=== PATIENT | female | born 1940 | race Caucasian/White ===

== ENCOUNTER 2016-05-06 17:42 | Inpatient (IN) | payer OTHER ==
[2016-05-06] MEDS ORDERED: NITROGLYCERIN SL PRN (18:35)
[2016-05-06] MEDS ORDERED: ASPIRIN PO STA (18:35)
--- NOTE | 2016-05-06 18:44 | PROVIDER DOCUMENTATION ---
HPI-Chest Pain <MilaFay - Last Filed: 05/06/16 22:56> - General Source: patient - History of Present Illness-CP Location: reports: substernal Chest Pain Radiation: reports: shoulders, back Quality of Pain: reports: pressure Severity in ED: mild Onset/Duration: other (OFF AND ON FOR TWO WEEKS, LAST 5 TO 30 MIN. vERY MUCH RELATED TO EXERTION) Timing: still present Context/Activities at Onset: reports: light activity Modifying Factors: improves with: nothing, rest. worse with: antacids, breathing, coughing, lying down Associated Symptoms: reports: back pain, shortness of breath Nitro Today/Relief: no nitro taken today Aspirin Treatment Today: no aspirin today Prior Chest Pain/Cardiac Workup: reports: no prior cardiac workup Similar Symptoms Previously?: Yes Recently Seen Here or By Another Healthcare Provider: No <Yonis Burton - Last Filed: 05/11/16 18:28> - General Chief Complaint: Chest Pain Stated Complaint: CHEST PAIN,HARD TO BREATHE Time Seen by Provider: 05/06/16 18:15 Allergies/Adverse Reactions: Patient Allergies Allergy/AdvReac Type Severity Reaction Status Date / Time aspirin Allergy Intermediate heart Verified 05/06/16 18:47 palpitations metformin Allergy Intermediate DIARRHEA Verified 05/06/16 18:47 Penicillins Allergy Intermediate SWELLING Verified 05/06/16 18:47 Home Medications: Home Medication List Medication Instructions Recorded Confirmed Last Taken Type Furosemide 40 mg PO DAILY 06/05/12 05/06/16 05/06/16 History Glipizide 20 mg PO BID 06/05/12 05/06/16 05/06/16 History Sertraline HCl [Zoloft] 100 mg PO DAILY 06/05/12 05/06/16 05/06/16 History Pioglitazone HCl [Actos] 45 mg PO DAILY 12/01/13 05/06/16 05/06/16 History Potassium Chloride E.r. [Klor-Con] 10 meq PO DAILY #0 tablet 12/27/13 05/06/16 05/06/16 Rx ATORVAstatin [Lipitor] 40 mg PO QHS 04/25/15 05/06/16 05/06/16 History Brimonidine 0.2% Ophth Soln 5 ml .SEE ORDER BID 04/25/15 05/06/16 05/06/16 History [Alphagan 0.2% Ophth Soln] Timolol 0.5% Oph Solution 1 drop BOTH EYES BID 04/25/15 05/06/16 05/06/16 History [Timoptic 0.5% Oph Solution] Hydrocodone/APAP 7.5 mg/325 mg 1 each PO Q6H PRN PRN #10 tablet 04/23/1605/06/16 Rx [Alverda-7.5] Azithromycin [Zithromax] 250 mg PO DAILY #5 tablet 05/09/16 Unknown Rx Guaifenesin/Codeine [Robitussin-AC] 10 ml PO Q4-6H PRN PRN #1 udc 05/09/16 Unknown Rx Tramadol [Ultram] 50 mg PO Q6H PRN PRN #15 tablet 05/09/16 Unknown Rx - History of Present Illness-CP Nature of Presenting Problem: 75 yo WF with DM 2 c/o exertional dyspnea and midpeigastric CP always relieved by rest. No Tng, (Yonis Burton) Review of Systems - Adult - REVIEW OF SYSTEMS - ADULT Constitutional: reports: no symptoms reported Eyes: reports: decreased vision Ears, Nose, Mouth & Throat: reports: no symptoms reported Cardiovascular: reports: see HPI Respiratory: reports: see HPI, other (PT HAD PTE 10 OR MORE YEARS AGO) Gastrointestinal: reports: no symptoms reported Genitourinary: reports: no symptoms reported Musculoskeletal: reports: no symptoms reported Integumentary: reports: no symptoms reported Neurological: reports: no symptoms reported Psychiatric: reports: no symptoms reported Endocrine: reports: no symptoms reported Hematologic/Lymphatic: reports: easy bruising Allergic/Immunologic: reports: no symptoms reported <Yonis Burton - Last Filed: 05/11/16 18:28> Past History - Adult - PAST MEDICAL HISTORY-ADULT Review of Records: reports: Old Records Reviewed Major Childhood Illnesses: reports: denies history Cardiovascular: reports: A-Fib, hyperlipidemia Respiratory: reports: denies history Gastrointestinal: reports: GERD Obstetrical/Gynecological: reports: denies history Genitourinary: reports: kidney disease Musculoskeletal: reports: denies history Neurological: reports: denies history Psychiatric: reports: depression Endocrine/Immune: reports: Diabetes, thyroid disorder Other Conditions: reports: other (DVT right leg) - PRIOR SURGERIES/PROCEDURES Surgical/Procedure History: reports: hysterectomy, orthopedic (extremity) ( right arm shoulder, left shoulder, wrist.), other (D & C ) - IMMUNIZATION STATUS Childhood Immunizations: UTD Flu Vaccine: UTD <Yonis Burton - Last Filed: 05/11/16 18:28> Physical Exam-General - PHYSICAL EXAM-ADULT Initial Vital Signs Reviewed: Yes - CONSTITUTIONAL General Appearance: mild distress - EYES Eyes: PERRL/EOMI, pink conjunctivae - HEAD, EARS, NOSE, MOUTH & THROAT HENMT: normocephalic/atraumatic, moist mucous membranes, pharynx normal - NECK Neck: full range of motion. negative: carotid bruit, lymphadenopathy - RESPIRATORY Respiratory: chest non-tender, lungs clear - CARDIOVASCULAR Cardiovascular: normal peripheral pulses - CHEST (BREASTS) Chest/Breast: deferred - GASTROINTESTINAL (ABDOMEN) Abdominal Exam: normal bowel sounds, non tender - GENITOURINARY Female Genitalia/Pelvic Exam: deferred - MUSCULOSKELETAL Back Exam: normal inspection Peripheral Pulses: radial (R): 2+, radial (L): 2+ <Yonis Burton - Last Filed: 05/11/16 18:28> Progress - EKG 1 Time of EKG reading by physician:: 17:49 EKG Read and Signed by:: Yonis Burton EKG Interpretation (*Must complete 3 of following elements*): Normal Rate: 75 Rhythm: NSR Comments: Normal ECG 2 Time of EKG reading by physician:: 21:15 EKG Read and Signed by:: Yonis Burton EKG Interpretation (*Must complete 3 of following elements*): Normal Rate: 64 Rhythm: NSR Comments: Normal ECG - CONSULTS/PCP/HOSPITALIST Notification #1 *Consult/PCP/Hospitalist*: Time Discussed: 22:57 Reason/Comments: Admittance Consult Disposition: Admit (Admit Transferred) <Fay Zaragoza - Last Filed: 05/06/16 22:56> <Yonis Burton - Last Filed: 05/11/16 18:28> - PLAN OF CARE/RESULTS Progress/Plan/Lab Results: Laboratory Tests 05/06/16 05/06/16 05/06/16 18:05 18:30 18:30 WBC 8.62 RBC 4.52 Hgb 14.0 Hct 43.1 MCV 95.4 MCH 31.0 MCHC 32.5 L RDW Std Deviation 13.7 Plt Count 176 MPV 11.3 H Immature Gran % (Auto) 0.2 Neut % (Auto) 60.8 Lymph % (Auto) 26.1 [place] % (Auto) 11.0 H Eos % (Auto) 1.7 Baso % (Auto) 0.2 Immature Gran # (Auto) 0.02 Neut # (Auto) 5.23 Lymph # (Auto) 2.25 [place] # (Auto) 0.95 H Eos # (Auto) 0.15 Baso # (Auto) 0.02 PT INR PTT (Actin FS) D-Dimer Sodium 142 Potassium 4.0 Chloride 101 Carbon Dioxide 28 Anion Gap 13 BUN 18 Creatinine 1.1 H Estimated GFR/1.73 m2 49 BUN/Creatinine Ratio 16 Glucose 122 H POC Glucose 154 H Calculated Osmolality 286 Calcium 9.2 Magnesium 1.8 Total Bilirubin 0.40 AST 23 ALT 14 Alkaline Phosphatase 138 H Creatine Kinase 86 Troponin T Bjp-R-Sojhnghxpak Pept Total Protein 6.9 Albumin 3.9 Globulin 3.0 Albumin/Globulin Ratio 1.3 05/06/16 05/06/16 05/06/16 18:30 18:30 18:30 WBC RBC Hgb Hct MCV MCH MCHC RDW Std Deviation Plt Count MPV Immature Gran % (Auto) Neut % (Auto) Lymph % (Auto) [place] % (Auto) Eos % (Auto) Baso % (Auto) Immature Gran # (Auto) Neut # (Auto) Lymph # (Auto) [place] # (Auto) Eos # (Auto) Baso # (Auto) PT 11.0 INR 1.04 PTT (Actin FS) 26.5 D-Dimer 1.00 H Sodium Potassium Chloride Carbon Dioxide Anion Gap BUN Creatinine Estimated GFR/1.73 m2 BUN/Creatinine Ratio Glucose POC Glucose Calculated Osmolality Calcium Magnesium Total Bilirubin AST ALT Alkaline Phosphatase Creatine Kinase Troponin T Oin-L-Zmrraftltod Pept 153 Total Protein Albumin Globulin Albumin/Globulin Ratio 05/06/16 05/06/16 05/06/16 18:30 20:58 20:58 WBC RBC Hgb Hct MCV MCH MCHC RDW Std Deviation Plt Count MPV Immature Gran % (Auto) Neut % (Auto) Lymph % (Auto) [place] % (Auto) Eos % (Auto) Baso % (Auto) Immature Gran # (Auto) Neut # (Auto) Lymph # (Auto) [place] # (Auto) Eos # (Auto) Baso # (Auto) PT INR PTT (Actin FS) D-Dimer Sodium Potassium Chloride Carbon Dioxide Anion Gap BUN Creatinine Estimated GFR/1.73 m2 BUN/Creatinine Ratio Glucose POC Glucose Calculated Osmolality Calcium Magnesium Total Bilirubin AST ALT Alkaline Phosphatase Creatine Kinase 82 Troponin T < 0.010 < 0.010 Qry-S-Sqppxngvpzb Pept Total Protein Albumin Globulin Albumin/Globulin Ratio Orders Category Date Time Status Cardiac Monitoring DIRECTED Care 05/06/16 18:35 Active Saline Loc NOW Care 05/06/16 18:35 Active CHEST-PORTABLE [RAD] Stat Exams 05/06/16 18:38 Taken CBC WITH ELECTRONIC DIFF [HEME] Stat Lab 05/06/16 18:30 Completed CK PROFILE [SP CHEM] Stat Lab 05/06/16 18:30 Completed CK PROFILE [SP CHEM] Stat Lab 05/06/16 20:58 Completed COMPREHENSIVE METABOLIC PANEL [CHEM] Stat Lab 05/06/16 18:30 Completed D-DIMER [CHEM] Stat Lab 05/06/16 18:30 Completed MAGNESIUM [CHEM] Stat Lab 05/06/16 18:30 Completed PRO B-NATRIURETIC PEPTIDE Stat Lab 05/06/16 18:30 Completed PROTIME WITH INR [COAG] Stat Lab 05/06/16 18:30 Completed PTT [COAG] Stat Lab 05/06/16 18:30 Completed TROPONIN T Stat Lab 05/06/16 18:30 Completed TROPONIN T Stat Lab 05/06/16 20:58 Completed Aspirin Med 05/06/16 18:35 Discontinued 325 mg PO STAT STA Nitroglycerin Sl [Nitroglycerin] Med 05/06/16 18:35 Active 0.4 mg SL Q5M PRN PRN EKG [EKG] Stat Ther 05/06/16 18:35 Ordered EKG [EKG] Stat Ther 05/06/16 19:59 Ordered Vital Signs - 24 hr 05/06/16 05/06/16 05/06/16 17:51 19:01 21:54 Temperature 97.8 F 98.0 F Pulse Rate 74 64 64 Respiratory 20 21 18 Rate Blood Pressure 134/53 144/60 119/53 O2 Sat by Pulse 99 96 94 L Oximetry 05/06/16 22:02 Temperature Pulse Rate Respiratory Rate Blood Pressure O2 Sat by Pulse 96 Oximetry (Fay Zaragoza) Laboratory Tests 05/06/16 05/06/16 05/06/16 18:05 18:30 18:30 WBC 8.62 RBC 4.52 Hgb 14.0 Hct 43.1 MCV 95.4 MCH 31.0 MCHC 32.5 L RDW Std Deviation 13.7 Plt Count 176 MPV 11.3 H Immature Gran % (Auto) 0.2 Neut % (Auto) 60.8 Lymph % (Auto) 26.1 [place] % (Auto) 11.0 H Eos % (Auto) 1.7 Baso % (Auto) 0.2 Immature Gran # (Auto) 0.02 Neut # (Auto) 5.23 Lymph # (Auto) 2.25 [place] # (Auto) 0.95 H Eos # (Auto) 0.15 Baso # (Auto) 0.02 ESR PT INR PTT (Actin FS) D-Dimer Sodium 142 Potassium 4.0 Chloride 101 Carbon Dioxide 28 Anion Gap 13 BUN 18 Creatinine 1.1 H Estimated GFR/1.73 m2 49 BUN/Creatinine Ratio 16 Glucose 122 H POC Glucose 154 H Estimat Average Glucose Hemoglobin A1c Calculated Osmolality 286 Calcium 9.2 Magnesium 1.8 Total Bilirubin 0.40 AST 23 ALT 14 Alkaline Phosphatase 138 H Creatine Kinase 86 Troponin T Kvd-R-Ghhuhwmusjs Pept Total Protein 6.9 Albumin 3.9 Globulin 3.0 Albumin/Globulin Ratio 1.3 Triglycerides Cholesterol LDL Cholesterol VLDL Cholesterol, Calc HDL Cholesterol Coronary Risk Interp TSH 05/06/16 05/06/16 05/06/16 18:30 18:30 18:30 WBC RBC Hgb Hct MCV MCH MCHC RDW Std Deviation Plt Count MPV Immature Gran % (Auto) Neut % (Auto) Lymph % (Auto) [place] % (Auto) Eos % (Auto) Baso % (Auto) Immature Gran # (Auto) Neut # (Auto) Lymph # (Auto) [place] # (Auto) Eos # (Auto) Baso # (Auto) ESR PT 11.0 INR 1.04 PTT (Actin FS) 26.5 D-Dimer 1.00 H Sodium Potassium Chloride Carbon Dioxide Anion Gap BUN Creatinine Estimated GFR/1.73 m2 BUN/Creatinine Ratio Glucose POC Glucose Estimat Average Glucose Hemoglobin A1c Calculated Osmolality Calcium Magnesium Total Bilirubin AST ALT Alkaline Phosphatase Creatine Kinase Troponin T Aef-W-Deselwjuabx Pept 153 Total Protein Albumin Globulin Albumin/Globulin Ratio Triglycerides Cholesterol LDL Cholesterol VLDL Cholesterol, Calc HDL Cholesterol Coronary Risk Interp TSH 05/06/16 05/06/16 05/06/16 18:30 18:30 18:30 WBC RBC Hgb Hct MCV MCH MCHC RDW Std Deviation Plt Count MPV Immature Gran % (Auto) Neut % (Auto) Lymph % (Auto) [place] % (Auto) Eos % (Auto) Baso % (Auto) Immature Gran # (Auto) Neut # (Auto) Lymph # (Auto) [place] # (Auto) Eos # (Auto) Baso # (Auto) ESR PT INR PTT (Actin FS) D-Dimer Sodium Potassium Chloride Carbon Dioxide Anion Gap BUN Creatinine Estimated GFR/1.73 m2 BUN/Creatinine Ratio Glucose POC Glucose Estimat Average Glucose 160 Hemoglobin A1c 7.2 H Calculated Osmolality Calcium Magnesium Total Bilirubin AST ALT Alkaline Phosphatase Creatine Kinase Troponin T < 0.010 Sfl-X-Iilrqchjxzf Pept Total Protein Albumin Globulin Albumin/Globulin Ratio Triglycerides Cholesterol LDL Cholesterol VLDL Cholesterol, Calc HDL Cholesterol Coronary Risk Inter TSH 1.80 05/06/16 05/06/16 05/07/16 20:58 20:58 05:35 WBC RBC Hgb Hct MCV MCH MCHC RDW Std Deviation Plt Count MPV Immature Gran % (Auto) Neut % (Auto) Lymph % (Auto) [place] % (Auto) Eos % (Auto) Baso % (Auto) Immature Gran # (Auto) Neut # (Auto) Lymph # (Auto) [place] # (Auto) Eos # (Auto) Baso # (Auto) ESR PT INR PTT (Actin FS) D-Dimer Sodium Potassium Chloride Carbon Dioxide Anion Gap BUN Creatinine Estimated GFR/1.73 m2 BUN/Creatinine Ratio Glucose POC Glucose 117 H Estimat Average Glucose Hemoglobin A1c Calculated Osmolality Calcium Magnesium Total Bilirubin AST ALT Alkaline Phosphatase Creatine Kinase 82 Troponin T < 0.010 Kil-N-Asihyriltyl Pept Total Protein Albumin Globulin Albumin/Globulin Ratio Triglycerides Cholesterol LDL Cholesterol VLDL Cholesterol, Calc HDL Cholesterol Coronary Risk Inter TSH 05/07/16 05/07/16 05/07/16 06:20 06:20 11:09 WBC RBC Hgb Hct MCV MCH MCHC RDW Std Deviation Plt Count MPV Immature Gran % (Auto) Neut % (Auto) Lymph % (Auto) [place] % (Auto) Eos % (Auto) Baso % (Auto) Immature Gran # (Auto) Neut # (Auto) Lymph # (Auto) [place] # (Auto) Eos # (Auto) Baso # (Auto) ESR PT INR PTT (Actin FS) D-Dimer Sodium Potassium Chloride Carbon Dioxide Anion Gap BUN Creatinine Estimated GFR/1.73 m2 BUN/Creatinine Ratio Glucose POC Glucose 106 H Estimat Average Glucose Hemoglobin A1c Calculated Osmolality Calcium Magnesium Total Bilirubin AST ALT Alkaline Phosphatase Creatine Kinase Troponin T < 0.010 Srs-Z-Iydamrtxcru Pept Total Protein Albumin Globulin Albumin/Globulin Ratio Triglycerides 54 Cholesterol 131 LDL Cholesterol 56 VLDL Cholesterol, Calc 11 HDL Cholesterol 64 Coronary Risk Interp 2.00 TSH 05/07/16 05/07/16 05/08/16 15:53 21:03 06:02 WBC RBC Hgb Hct MCV MCH MCHC RDW Std Deviation Plt Count MPV Immature Gran % (Auto) Neut % (Auto) Lymph % (Auto) [place] % (Auto) Eos % (Auto) Baso % (Auto) Immature Gran # (Auto) Neut # (Auto) Lymph # (Auto) [place] # (Auto) Eos # (Auto) Baso # (Auto) ESR PT INR PTT (Actin FS) D-Dimer Sodium Potassium Chloride Carbon Dioxide Anion Gap BUN Creatinine Estimated GFR/1.73 m2 BUN/Creatinine Ratio Glucose POC Glucose 101 168 H D 111 H Estimat Average Glucose Hemoglobin A1c Calculated Osmolality Calcium Magnesium Total Bilirubin AST ALT Alkaline Phosphatase Creatine Kinase Troponin T Spt-A-Kqbswctasal Pept Total Protein Albumin Globulin Albumin/Globulin Ratio Triglycerides Cholesterol LDL Cholesterol VLDL Cholesterol, Calc HDL Cholesterol Coronary Risk Interp TSH 05/08/16 05/08/16 05/08/16 06:30 06:30 06:30 WBC 6.08 RBC 4.21 Hgb 12.9 Hct 40.8 MCV 96.9 MCH 30.6 MCHC 31.6 L RDW Std Deviation 13.8 Plt Count 158 MPV 11.1 H Immature Gran % (Auto) 0.0 Neut % (Auto) 57.3 Lymph % (Auto) 30.6 [place] % (Auto) 9.7 H Eos % (Auto) 2.1 Baso % (Auto) 0.3 Immature Gran # (Auto) 0.00 Neut # (Auto) 3.48 Lymph # (Auto) 1.86 [place] # (Auto) 0.59 Eos # (Auto) 0.13 Baso # (Auto) 0.02 ESR 23 H PT INR PTT (Actin FS) D-Dimer Sodium 141 Potassium 4.7 D Chloride 102 Carbon Dioxide 30 Anion Gap 9 BUN 20 Creatinine 1.0 H Estimated GFR/1.73 m2 54 BUN/Creatinine Ratio 20 Glucose 105 H POC Glucose Estimat Average Glucose Hemoglobin A1c Calculated Osmolality 284 Calcium 8.9 Magnesium Total Bilirubin AST ALT Alkaline Phosphatase Creatine Kinase Troponin T Erb-A-Ljsjblgofbs Pept Total Protein Albumin Globulin Albumin/Globulin Ratio Triglycerides Cholesterol LDL Cholesterol VLDL Cholesterol, Calc HDL Cholesterol Coronary Risk Interp TSH 05/08/16 05/08/16 05/08/16 11:47 16:36 20:47 WBC RBC Hgb Hct MCV MCH MCHC RDW Std Deviation Plt Count MPV Immature Gran % (Auto) Neut % (Auto) Lymph % (Auto) [place] % (Auto) Eos % (Auto) Baso % (Auto) Immature Gran # (Auto) Neut # (Auto) Lymph # (Auto) [place] # (Auto) Eos # (Auto) Baso # (Auto) ESR PT INR PTT (Actin FS) D-Dimer Sodium Potassium Chloride Carbon Dioxide Anion Gap BUN Creatinine Estimated GFR/1.73 m2 BUN/Creatinine Ratio Glucose POC Glucose 124 H 162 H 147 H Estimat Average Glucose Hemoglobin A1c Calculated Osmolality Calcium Magnesium Total Bilirubin AST ALT Alkaline Phosphatase Creatine Kinase Troponin T Fbs-S-Vxkivzmlcdu Pept Total Protein Albumin Globulin Albumin/Globulin Ratio Triglycerides Cholesterol LDL Cholesterol VLDL Cholesterol, Calc HDL Cholesterol Coronary Risk Interp TSH 05/09/16 05/09/16 06:05 11:59 WBC RBC Hgb Hct MCV MCH MCHC RDW Std Deviation Plt Count MPV Immature Gran % (Auto) Neut % (Auto) Lymph % (Auto) [place] % (Auto) Eos % (Auto) Baso % (Auto) Immature Gran # (Auto) Neut # (Auto) Lymph # (Auto) [place] # (Auto) Eos # (Auto) Baso # (Auto) ESR PT INR PTT (Actin FS) D-Dimer Sodium Potassium Chloride Carbon Dioxide Anion Gap BUN Creatinine Estimated GFR/1.73 m2 BUN/Creatinine Ratio Glucose POC Glucose 127 H 111 H Estimat Average Glucose Hemoglobin A1c Calculated Osmolality Calcium Magnesium Total Bilirubin AST ALT Alkaline Phosphatase Creatine Kinase Troponin T Gow-H-Uaoamggkvhp Pept Total Protein Albumin Globulin Albumin/Globulin Ratio Triglycerides Cholesterol LDL Cholesterol VLDL Cholesterol, Calc HDL Cholesterol Coronary Risk Interp TSH Orders Category Date Time Status Admit - [facility] - [facility] Routine AdmDCTranf 05/07/16 00:18 Ordered Discharge Patient Routine AdmDCTranf 05/09/16 10:23 Ordered Activity - Up with Assistance ORDERED Care 05/07/16 00:18 Active Cardiac Monitoring DIRECTED Care 05/06/16 18:35 Completed FSBS/Accucheck Result AC + HS Care 05/07/16 00:18 Active Intake and Output-Strict ORDERED Care 05/07/16 00:18 Active Nursing- MD Consult Request ROUTINE Care 05/07/16 00:20 Completed Saline Loc NOW Care 05/06/16 18:35 Completed Vital Signs Order Q 8-HR ASSESS Care 05/07/16 00:18 Active Physician/Provider Consults Routine Cons 05/07/16 00:18 Ordered Heart Healthy Diet Diet 05/07/16 16:24 Completed NPO Diet 05/07/16 00:19 Completed ANGIOGRAM/PULMONARY ARTERIES [CT] Stat Exams 05/06/16 23:04 Completed CHEST-PORTABLE [RAD] Stat Exams 05/06/16 18:38 Completed A1C HGB W EST AVG GLUCOSE [CHEM] Stat Lab 05/07/16 00:18 Completed BASIC METABOLIC PANEL [CHEM] Routine Lab 05/08/16 06:30 Completed CBC WITH DIFF [HEME] Routine Lab 05/08/16 06:30 Completed CBC WITH ELECTRONIC DIFF [HEME] Stat Lab 05/06/16 18:30 Completed CK PROFILE [SP CHEM] Stat Lab 05/06/16 18:30 Completed CK PROFILE [SP CHEM] Stat Lab 05/06/16 20:58 Completed COMPREHENSIVE METABOLIC PANEL [CHEM] Stat Lab 05/06/16 18:30 Completed D-DIMER [CHEM] Stat Lab 05/06/16 18:30 Completed LIPID PROFILE W/CALC LDL [LIPIDS] Routine Lab 05/07/16 06:20 Completed MAGNESIUM [CHEM] Stat Lab 05/06/16 18:30 Completed PRO B-NATRIURETIC PEPTIDE Stat Lab 05/06/16 18:30 Completed PROTIME WITH INR [COAG] Stat Lab 05/06/16 18:30 Completed PTT [COAG] Stat Lab 05/06/16 18:30 Completed SED RATE [HEME] Routine Lab 05/08/16 06:30 Completed TROPONIN T Q6H Lab 05/07/16 06:20 Completed TROPONIN T Stat Lab 05/06/16 18:30 Completed TROPONIN T Stat Lab 05/06/16 20:58 Completed TSH Stat Lab 05/07/16 00:20 Completed ATORVAstatin [Lipitor] Med 05/07/16 21:00 Discontinued 40 mg PO QHS Acetaminophen [Tylenol] Med 05/07/16 00:18 Discontinued 650 mg PO Q6H PRN PRN Albuterol 2.5MG/Ipratrop 0.5MG [Duoneb (A & A)] Med 05/07/16 00:37 Discontinued 3 ml INH NOW ONE Albuterol 2.5MG/Ipratrop 0.5MG [Duoneb (A & A)] Med 05/08/16 12:04 Discontinued 3 ml INH Q4-6H PRN PRN Aspirin Med 05/06/16 18:35 Discontinued 325 mg PO STAT STA Azithromycin [Zithromax] Med 05/07/16 17:00 Discontinued 250 mg PO DAILY Brimonidine 0.2% Ophth Soln [Alphagan 0.2% Ophth Soln] Med 05/07/16 00:15 Discontinued 0 ml OPH BID Clopidogrel [Plavix] Med 05/07/16 09:00 Discontinued 75 mg PO DAILY Enoxaparin [Lovenox] Med 05/07/16 00:30 Discontinued 40 mg SUBQ Q24H Furosemide [Lasix] Med 05/07/16 09:00 Discontinued 40 mg PO DAILY Guaifenesin/Codeine [Robitussin-AC] Med 05/08/16 12:04 Discontinued 10 ml PO Q4-6H PRN PRN Hydrocodone/APAP 7.5 mg/325 mg [Alverda-7.5] Med 05/07/16 00:15 Discontinued 1 each PO Q6H PRN PRN Insulin Glargine [Lantus] Med 05/07/16 09:00 Discontinued 15 unit SUBQ QAM Insulin Lispro [Humalog] Med 05/07/16 07:00 Discontinued See Protocol SUBQ 0700,1100,1600,2100 Mag Hydrox/Al Hydrox/Simeth [Maalox Plus Liquid] Med 05/07/16 00:18 Discontinued 30 ml PO NOW ONE Mag Hydrox/Al Hydrox/Simeth [Maalox Plus Liquid] Med 05/07/16 00:18 Discontinued 30 ml PO Q4H PRN PRN Morphine Med 05/07/16 00:18 Discontinued 2 mg IV Q4H PRN PRN Nitroglycerin Sl [Nitroglycerin] Med 05/06/16 18:35 Discontinued 0.4 mg SL Q5M PRN PRN Ondansetron [Zofran] Med 05/07/16 00:18 Discontinued 4 mg IV Q4H PRN PRN Pantoprazole [Protonix] Med 05/07/16 00:41 Discontinued 40 mg IV NOW ONE Pioglitazone [Actos] Med 05/07/16 09:00 Discontinued 22.5 mg PO DAILY Potassium Chloride E.r. [Klor-Con] Med 05/07/16 09:00 Discontinued 10 meq PO DAILY Sertraline [Zoloft] Med 05/07/16 09:00 Discontinued 100 mg PO DAILY Sodium Chloride 0.9% Med 05/07/16 00:41 Discontinued 10 ml INJ NOW ONE Timolol 0.5% Oph Solution [Timoptic 0.5% Oph Solution] Med 05/07/16 09:00 Discontinued 0 ml BOTH EYES BID Tramadol [Ultram] Med 05/09/16 10:25 Discontinued 50 mg PO Q6H PRN PRN Aerosol Treatments Routine Oth 05/07/16 00:37 Completed Aerosol Treatments Routine Oth 05/08/16 12:04 Completed Aerosol Treatments Stat Oth 05/07/16 00:37 Completed Aerosol Treatments Stat Oth 05/08/16 12:04 Completed EKG [EKG] Stat Ther 05/06/16 18:35 Draft EKG [EKG] Stat Ther 05/06/16 19:59 Draft Echo Spec/Color Dop W/O Contra [CV] Routine Ther 05/08/16 08:00 Completed Transfer/Admit Order [TRANSFER] Routine Transfer 05/06/16 23:48 Completed Transfer/Admit Order [TRANSFER] Routine Transfer 05/07/16 00:17 Completed Vital Signs Temp Pulse Resp BP Pulse Ox 05/09/16 09:23 57 L 20 96 05/09/16 09:02 97.6 F 70 20 120/54 05/09/16 06:33 98.0 F 59 L 18 135/55 97 05/08/16 22:34 60 17 98 05/08/16 20:21 98.2 F 60 17 137/49 98 05/08/16 16:14 90 18 97 05/08/16 15:13 97.6 F 58 L 16 114/48 99 05/08/16 08:21 97.5 F L 63 16 130/56 100 05/08/16 04:02 97.4 F L 60 20 114/47 98 05/07/16 19:57 97.7 F 56 L 20 118/53 97 05/07/16 15:24 97.7 F 58 L 19 130/46 05/07/16 05:57 97.3 F L 57 L 120/49 100 05/07/16 03:54 97.8 F 58 L 15 115/51 96 05/07/16 02:05 60 12 119/64 98 05/07/16 01:09 78 20 05/07/16 00:09 98.1 F 66 17 126/55 96 05/06/16 23:49 98.1 F 66 10 L 147/62 96 05/06/16 22:02 96 05/06/16 21:54 98.0 F 64 18 119/53 94 L 05/06/16 19:01 64 21 144/60 96 05/06/16 17:51 97.8 F 74 20 134/53 99 aspirin Allergy (Intermediate, Verified 05/06/16 18:47) heart palpitations metformin Allergy (Intermediate, Verified 05/06/16 18:47) DIARRHEA Penicillins Allergy (Intermediate, Verified 05/06/16 18:47) SWELLING Furosemide 40 mg PO DAILY 06/05/12 Glipizide 20 mg PO BID 06/05/12 Sertraline HCl [Zoloft] 100 mg PO DAILY 06/05/12 Pioglitazone HCl [Actos] 45 mg PO DAILY 12/01/13 Potassium Chloride E.r. [Klor-Con] 10 meq PO DAILY #0 tablet 12/27/13 ATORVAstatin [Lipitor] 40 mg PO QHS 04/25/15 Brimonidine 0.2% Ophth Soln [Alphagan 0.2% Ophth Soln] 5 ml .SEE ORDER BID 04/25 Timolol 0.5% Oph Solution [Timoptic 0.5% Oph Solution] 1 drop BOTH EYES BID 02/26 Hydrocodone/APAP 7.5 mg/325 mg [[place]ver[place]-7.5] 1 each PO Q6H PRN PRN #10 tablet 12/28 Azithromycin [Zithromax] 250 mg PO DAILY #5 tablet 05/09/16 Guaifenesin/Codeine [Robitussin-AC] 10 ml PO Q4-6H PRN PRN #1 udc 05/09/16 Tramadol [Ultram] 50 mg PO Q6H PRN PRN #15 tablet 05/09/16 TYPE 2 DIABETES MELLITUS WITHOUT COMPLICATIONS (05/07/16) MORBID (SEVERE) OBESITY DUE TO EXCESS CALORIES (05/07/16) HYPERLIPIDEMIA, UNSPECIFIED (05/07/16) ESSENTIAL (PRIMARY) HYPERTENSION (05/07/16) BRONCHITIS, NOT SPECIFIED ACUTE OR CHRONIC (05/07/16) CHONDROCOSTAL JUNCTION SYNDROME [TIETZE] (05/07/16) OTHER CHEST PAIN (05/07/16) BODY MASS INDEX (BMI) 32.0-32.9, ADULT (05/07/16) RETIREMENT (CURRENT) USE OF ORAL HYPOGLYCEMIC DRUGS (05/07/16) OTHER RETIREMENT (CURRENT) DRUG THERAPY (05/07/16) FAMILY HISTORY OF MALIGNANT NEOPLASM OF ORGANS OR SYSTEMS (05/07/16) FAMILY HX OF ISCHEM HEART DIS AND OTH DIS OF THE CIRC SYS (05/07/16) FAMILY HISTORY OF DIABETES MELLITUS (05/07/16) PERSONAL HISTORY OF OTHER VENOUS THROMBOSIS AND EMBOLISM (05/07/16) (Yonis Burton) Departure - Departure Time of Disposition Order: 22:56 Certified Medical Emergency: Emergent <Fay Zaragoza - Last Filed: 05/06/16 22:56> - Departure Time of Disposition Order: 22:43 (05/06/16) <Yonis Burton - Last Filed: 05/11/16 18:28> - Departure DIAGNOSIS: Acute coronary syndrome Disposition: ADMITTED INPATIENT 09 Condition: Stable Attestation - Scribe Verification/Attestation Scribe:: Fay Zaragoza Acting as Scribe for:: Yonis Burton Scribe documention review:: This chart was documented by a scribe and accurately reflects the service the provider performed and the decisions made by the provider. <Fay Zaargoza - Last Filed: 05/06/16 22:56> Physician Attestation
[2016-05-06 18:49] LABS: MANUAL DIFF NEEDED? NO
[2016-05-06 18:53] LABS: BASO% 0.2 % (0.0-0.8); EOS# 0.15 X1000 (0.0-0.7); EOS% 1.7 % (0.0-10.0); HEMATOCRIT 43.1 % (37.0-47.0); IMM GRAN# 0.02 X1000 (0.0-0.04); IMM GRAN% 0.2 % (0.0-0.5); LYMPH# 2.25 X1000 (1.2-3.4); LYMPH% 26.1 % (20.5-51.1); MCHC 32.5 g/dL (33-37); MCV 95.4 FL (81-99); MONO# 0.95 X1000 (0.11-0.59); MPV 11.3 FL (7.4-10.4); NEUT% 60.8 % (42.2-75.2); PLT 176 X1000 (130-400); RBC 4.52 XMIL (4.2-5.4)
[2016-05-06 19:00] LABS: INR 1.04; PTT 26.5 Seconds (22.0-36.0)
[2016-05-06 19:14] LABS: ALBUMIN 3.9 g/dL (3.5-5.0); CALCIUM 9.2 mg/dL (8.8-10.2); MAGNESIUM 1.8 mg/dL (1.5-2.7); TOTAL BILIRUBIN 0.4 mg/dL (0.20-1.00); TOTAL PROTEIN 6.9 g/dL (6.3-8.3)
[2016-05-07] MEDS: ALPHAGAN 0.2% OPHTH SOLN OPH SCH ×3 (00:15→22:37)
[2016-05-07] MEDS ORDERED: NORCO-7.5 PO PRN (00:15)
[2016-05-07] MEDS ORDERED: TYLENOL PO PRN (00:18)
[2016-05-07] MEDS ORDERED: MORPHINE IV PRN (00:18)
[2016-05-07] MEDS ORDERED: MAALOX PLUS LIQUID PO PRN (00:18)
[2016-05-07] MEDS ORDERED: ZOFRAN IV PRN (00:18)
[2016-05-07] MEDS ORDERED: MAALOX PLUS LIQUID PO ONE (00:18)
[2016-05-07] MEDS ORDERED: DUONEB (A & A) INH ONE (00:37)
[2016-05-07] MEDS ORDERED: SODIUM CHLORIDE 0.9% INJ ONE (00:41)
[2016-05-07] MEDS ORDERED: PROTONIX IV ONE (00:41)
[2016-05-07] MEDS: LOVENOX SUBQ SCH (00:50)
[2016-05-07 01:35] LABS: HEMOGLOBIN A1C 7.2 % (4.8-6.0)
--- NOTE | 2016-05-07 03:07 | HISTORY AND PHYSICAL ---
PRIMARY CARE PHYSICIAN: Dr. Juan Schmitz in [place], [place]. REASON FOR ADMISSION: Intermittent chest pain for the last 2 weeks. HISTORY OF PRESENT ILLNESS: Ms Mamie Roldan is a 75-year-old lady with past medical history of type 2 diabetes, hypertension, hyperlipidemia, morbid obesity, prior DVTs in the past. She comes in today complaining of intermittent sharp chest pain in the precordial area, nonradiating at that time. At that time the chest pain lasted for a few minutes and spontaneously resolved. There was no associated shortness of breath with this, lightheadedness. Today, patient says that her pain was more intense, more prolonged, with profound shortness of breath, worse with movement. She decided to come to the ER because of the duration, intensity of this pain. She decided to come in to get this checked out. She denies any leg swelling or extremity redness or pain. No antecedent complaints of PND or orthopnea. No cough, fever or chills. The chest pain she currently has at this point in time is worse when she moves around, i.e., her trunk. It was worse when she takes a deep breath. Said the pain is also worse when she tries to lie flat on her back. EKG done in the ER does show normal sinus rhythm with a rate of [address] changes consistent with ischemia. The patient denies any GI, , neurological complaints. No polyuria, polydipsia, blurred vision, her dysuria. No arthralgias or rash. The patient was also seen in the ER for initial chest pain and was given a [place] and Toradol without much improvement of her persistent symptoms. REVIEW OF SYSTEMS: Positive for palpitations with the chest pain that occurred today which has lasted pretty much most of all day. The palpitations, however, were intermittent as were the nausea and lightheadedness. Twelve systems review is negative. Positive findings per HPI. ALLERGIES: Aspirin, metformin and penicillins. HOME MEDICATIONS: Glipizide 20 mg b.i.d., Lasix 40 mg daily, Zoloft 100 mg daily, Actos 45 mg daily, potassium chloride 10 mEq daily, Atorvastatin 40 mg daily, hydrocodone 7.5 q.6h p.r.n., ketorolac 10 mg q.6 p.r.n., timolol 1 drop to both eyes and Alphagan b.i.d. to both eyes. SURGICAL HISTORY: Patient has had a laparoscopic cholecystectomy. She has had a hysterectomy, D and C, right arm and left shoulder surgery, carpal tunnel surgery. Expiratory laparotomy following the initial hysterectomy. FAMILY HISTORY: Notable for heart disease, brain cancer, type 2 diabetes, and blood clots in other family members. LABORATORY WORK: EKG as noted in HPI. CT of the chest done with because of prior history of DVTs and elevated D-dimer which was 1. This was negative for any acute PTE. White count 8000, hemoglobin and hematocrit 14 and 43, platelets 176,000 with normal differential. BUN 18, creatinine 1.1, glucose 122, alkaline phosphatase 138, with normal transaminases. Troponin x2 and CK x2 both normal. PT/INR is normal. ProBNP 153. SOCIAL HISTORY: Does not smoke, drink, or use illicit drugs. Lives with family. PHYSICAL EXAMINATION: VITAL SIGNS: Blood pressure 126/55, heart rate 86, respirations 17, temperature is 98.1 degrees, and was 96% on room air. GENERAL: She is an obese, elderly woman who is in mild distress whenever she moves from her pain. She is alert and oriented to person, place, and time, and anxious. HEENT: Head is normocephalic, atraumatic. Eyes, TORSTEN. EOMI. She is anicteric, not pale. ENT and oropharyngeal exam is grossly normal. NECK: No JVD visualized. No bruit heard. No thyromegaly. CHEST: Decreased air entry in the bases. Questionable wheezes in the bases bilaterally. No crepitations. CARDIOVASCULAR: First and second heart sounds heard. No gallops, murmurs, or rub. Rhythm is regular. ABDOMEN: Protuberant, soft, nontender. No mass or organomegaly. Bowel sounds are normal. RECTAL: Exam deferred at this time. EXTREMITIES: No edema, clubbing, or peripheral cyanosis. Pulses distally in all extremities with good volume and symmetrical. NEUROLOGICAL: No focal deficits. SKIN: Intact with no breakdown, lesions or erythema. MUSCULAR: Exam is grossly normal. ASSESSMENT: 1. Chest pain syndrome, musculoskeletal versus ischemic. 2. Type 2 diabetes. 3. Hyperlipidemia. 4. Hypertension. PLAN: For now, we will keep patient NPO in anticipation for possible stress test to be determined by peel oven tender. We will order an echocardiogram to get a baseline function of the patient's LV function. For now, patient has questionable aspirin history. I will start patient on Plavix. She was initially prescribed aspirin but this was discontinued on account of her allergies. Her overall symptomatology initially suggestive of ischemic etiology but on further questioning I suspect this might be musculoskeletal. However, the fact that she did respond to hydrocodone and Toradol also may put that in doubt and a GI etiology may need to be considered. In the interim, I agree that she needs to continue with her statin therapy and we will switch her to insulin for control of her blood sugars and discontinue sulfonylureas for now. We will do serial cardiac enzymes also. Patient will continue her other home medications and we will give the patient a trial dose of Maalox to see if this helps with her discomfort and a PPI. Because of her shortness of breath, we will give her a trial of nebulizer treatment and she can be reassessed in the morning by the day team to see if there is a respiratory component to her complaints.
--- NOTE | 2016-05-07 05:48 | EKG Report ---
Test Performed on : 05/06/2016 9:15:30 PM Test Reason : Chest Pain Blood Pressure : / mmHG Vent. Rate : 064 BPM Atrial Rate : 064 BPM P-R Int : 192 ms QRS Dur : 088 ms QT Int : 436 ms P-R-T Axes : 048 -03 047 degrees QTc Int : 449 ms Normal sinus rhythm. Normal ECG When compared with ECG of 06-MAY-2016 17:49, (Unconfirmed) No significant change was found Unconfirmed Result
--- NOTE | 2016-05-07 05:48 | EKG Report ---
Test Performed on : 05/06/2016 5:49:48 PM Test Reason : CP Blood Pressure : / mmHG Vent. Rate : 075 BPM Atrial Rate : 075 BPM P-R Int : 190 ms QRS Dur : 082 ms QT Int : 402 ms P-R-T Axes : 052 -06 072 degrees QTc Int : 448 ms Normal sinus rhythm. Normal ECG When compared with ECG of 25-DEC-2013 18:12, No significant change was found Unconfirmed Result
[2016-05-07 06:54] LABS: HDL 64 mg/dL (45-65); LDL 56 mg/dL; TRIGLYCERIDES 54 mg/dL (35-135); VLDL 11 mg/dL
[2016-05-07] MEDS: HUMALOG SUBQ SCH ×4 (07:29→22:37)
--- NOTE | 2016-05-07 08:01 | Diag Imaging Result Document ---
PROCEDURE NAME: ANGIOGRAM/PULMONARY ARTERIES - 05/06/2016 CT OF THE CHEST WITH INTRAVENOUS CONTRAST: FINDINGS: There are no filling defects in the pulmonary arteries. The aorta is not distended, and there is no evidence of dissection. There are no abnormal fluid collections. There is no evidence of significant adenopathy. There are no acute bony abnormalities. There is some atelectasis or fibrosis in the lung bases, particularly the left lower lobe. There are some calcified granulomata. No evidence of acute lung parenchymal consolidation is present. IMPRESSION: No evidence of pulmonary emboli.
--- NOTE | 2016-05-07 08:26 | Diag Imaging Result Document ---
PROCEDURE NAME: CHEST-PORTABLE - 05/06/2016 SINGLE FRONTAL RADIOGRAPH OF THE CHEST: COMPARISON: 12/25/2013. FINDINGS: The lungs are grossly clear. There is no discrete pleural fluid collection or pneumothorax. The cardiomediastinal silhouette and upper airway are grossly unremarkable. IMPRESSION: No evidence of acute chest pathology.
[2016-05-07] MEDS: KLOR-CON PO SCH (09:00)
[2016-05-07] MEDS ORDERED: PLAVIX PO SCH (09:00)
[2016-05-07] MEDS: TIMOPTIC 0.5% OPH SOLUTION BOTH EYES SCH ×2 (09:00→22:38)
[2016-05-07] MEDS: LASIX PO SCH (09:00)
[2016-05-07] MEDS: ZOLOFT PO SCH (09:00)
[2016-05-07] MEDS: ACTOS PO SCH (09:00)
[2016-05-07] MEDS: LANTUS SUBQ SCH (11:26)
--- NOTE | 2016-05-07 17:38 | PROGRESS NOTE ---
DATE: 05/07/2016 SUBJECTIVE: Ms. Roldan got admitted today with history of chest discomfort. Of note, she has been having some cough for the past 2 weeks which is dry according to her. She came down with some upper respiratory tract infection. Subsequently she has been having this chest pain which is usually worse with leaning forward and with taking in deep inspiration. OBJECTIVE: Vital signs: Blood pressure 130/46, pulse 58, respirations 19, temperature is 97.7 degrees. General: Ms. Roldan is a 75-year-old female. She was in bed , not seemingly distressed. HEENT: Mucosa is pink and moist. Anicteric. Acyanotic. Neck: Supple. Chest: Clear. There is costochondral joint tenderness. Abdomen: Soft. Extremities: No pedal edema. Central Nervous System: Patient is alert and oriented x4. There is no focal neurological deficit. LABORATORY DATA: 1. Reviewed unremarkable except for creatinine of 1.1. 2. CTA of lungs which was done shows no evidence of pulmonary emboli. Some calcified granuloma. No evidence of acute parenchymal consolidation. 3. BMP was normal. Troponins have been normal. 4. EKG shows normal sinus rhythm. No acute ST-segment abnormality. 5. A1c is 7.2. ASSESSMENT: 1. Atypical chest pain. This sounds more like costochondritis, however, patient does have significant coronary risk factors. Cardiology has been consulted. An echocardiogram has been ordered. We will be waiting on the reports. 2. Costochondritis. We will treat this empirically. 3. Diabetes mellitus. A1c 7.2. 4. Bronchitis. This has been lingering around for some time. We will put the patient on azithromycin to help clear this up. Since it has been for a while I am not sure if there is a superimposed bacterial infection. [facility]
[2016-05-07] MEDS: ZITHROMAX PO SCH (18:07)
[2016-05-07] MEDS: LIPITOR PO SCH (22:37)
[2016-05-08] MEDS: LOVENOX SUBQ SCH (06:36)
[2016-05-08] MEDS: HUMALOG SUBQ SCH ×4 (06:36→22:18)
[2016-05-08 07:04] LABS: MANUAL DIFF NEEDED? NO
[2016-05-08 07:15] LABS: BASO% 0.3 % (0.0-0.8); EOS# 0.13 X1000 (0.0-0.7); EOS% 2.1 % (0.0-10.0); HEMATOCRIT 40.8 % (37.0-47.0); HEMOGLOBIN 12.9 g/dL (12.0-16.0); LYMPH# 1.86 X1000 (1.2-3.4); LYMPH% 30.6 % (20.5-51.1); MCH 30.6 PG (27-31); MCHC 31.6 g/dL (33-37); MCV 96.9 FL (81-99); MONO# 0.59 X1000 (0.11-0.59); MONO% 9.7 % (1.7-9.3); MPV 11.1 FL (7.4-10.4); NEUT% 57.3 % (42.2-75.2); PLT 158 X1000 (130-400); RBC 4.21 XMIL (4.2-5.4)
[2016-05-08 07:35] LABS: CALCIUM 8.9 mg/dL (8.8-10.2); POTASSIUM 4.7 mmol/L (3.5-5.1)
[2016-05-08] MEDS ORDERED: ROBITUSSIN-AC PO PRN (12:04)
[2016-05-08] MEDS: TIMOPTIC 0.5% OPH SOLUTION BOTH EYES SCH ×2 (12:05→22:19)
[2016-05-08] MEDS: ALPHAGAN 0.2% OPHTH SOLN OPH SCH ×2 (12:05→22:19)
[2016-05-08] MEDS: LANTUS SUBQ SCH (12:06)
[2016-05-08] MEDS: ACTOS PO SCH (12:06)
[2016-05-08] MEDS: KLOR-CON PO SCH (12:07)
[2016-05-08] MEDS: ZOLOFT PO SCH (12:07)
[2016-05-08] MEDS: LASIX PO SCH (12:07)
[2016-05-08] MEDS: ZITHROMAX PO SCH (12:08)
--- NOTE | 2016-05-08 12:36 | PROGRESS NOTE ---
DATE: 05/08/2016 SUBJECTIVE: Today Ms. Roldan referred to be doing a whole lot better. Continues to have some cough, but no expectoration. OBJECTIVE: Vital signs: Blood pressure is 130/56, pulse of 60, respirations 16, temperature 97.5 degrees. General: Ms. Roldan is a 75-year-old female. She is in bed. She did not seem to be in any distress. HEENT: Mucosa is pink and moist. Anicteric and acyanotic. Neck: Supple. Chest: Air entry is bilaterally reduced, but did not appreciate any crepitations or rhonchi. Cardiovascular: Regular rate and rhythm. No murmur. No rubs. No gallops. Abdomen: Distended, but nontender. Bowel sounds are present. No hepatosplenomegaly. SENIOR BENEFITS SPECIALIST: Patient is alert, oriented x4. There is no focal neurological deficit. Musculoskeletal: There is some tenderness over the costochondral joints. LABORATORY DATA: CBC is reviewed. Completely normal. Chemistries reviewed. Completely normal. Creatinine is down to 1. ASSESSMENT: 1. Atypical chest pain with normal electrocardiogram and troponins. The patient had an echo. We are still pending on the official report. 2. Costochondritis improving. 3. Diabetes mellitus with A1c of 7.2, stable. 4. Bronchitis/ patient is currently on azithromycin. Continues to have substantial cough, nonproductive. We will add guaifenesin to symptomatically help with the cough. GENERAL PLAN: 1. Patient seems to be progressively doing a little better. We will be waiting on the echocardiogram report to make further decisions. 2. We will probably be able to let the patient go home later on today or tomorrow morning if the echo report is normal.
--- NOTE | 2016-05-08 13:29 | CONSULTATION ---
DATE OF CONSULTATION: 05/08/2016 INDICATION FOR CONSULTATION: Chest pain. HISTORY OF PRESENT ILLNESS: Ms. Roldan is a 75-year-old white female with a history of diabetes who presented for evaluation of chest pain that has been present and constant for the last 2 weeks. There has been some exacerbation of this, most notably with positional changes as well as deep breath. She has had no relief from the chest pain over the last 2 weeks. She reports this started around the time that she had an upper respiratory infection that she took care of at home. She has a family history of coronary disease that does not seem to be early-onset in multiple half siblings. She does not smoke. She has diabetes. She is not hypertensive. She does have hyperlipidemia. She does not take aspirin at home secondary to an aspirin allergy. She presently has had negative cardiac enzymes during the course of the hospitalization and has had unremarkable EKGs. I was made aware of the consultation this morning when reviewing our inpatient hospital list. I did not have any telephone communication of the consultation. PAST MEDICAL HISTORY: 1. Diabetes. 2. Hyperlipidemia. SOCIAL HISTORY: No tobacco use. She has no alcohol use. FAMILY HISTORY: She has a history of heart disease in multiple family members, but it does not appear to be early-onset. REVIEW OF SYSTEMS: A 10-system review of systems is negative except for those things mentioned in the HPI. PHYSICAL EXAMINATION: Vital Signs: She is afebrile. Heart rate of 63. Blood pressure of 130/56. General: She is in no acute distress. HEENT: Oropharynx is moist. She has normal dentition. Eye examination shows pink conjunctivae, white sclerae. Neck: Examination shows no obvious thyromegaly or thyroid tenderness. Cardiovascular: She is in a regular rate and rhythm. She has no obvious murmurs. There is no S3 present. She has no lower extremity edema. No carotid bruits. Chest: Clear bilaterally. She has no increased work of breathing. She does have tenderness to palpation along the right lower sternal border which corresponds to the pain that she is having as well as the location of it. She has no bony deformities in the area nor does she have any external signs of trauma. Abdomen: Soft, nontender, nondistended. She has no obvious organomegaly. Skin: Warm and dry throughout, without any rashes. Neurological: She is moving all extremities well. Cranial nerves 2-12 are intact, without any sensation deficits. Psychiatric: Alert, oriented, and pleasant. She has normal mood and affect. PERTINENT DATA: CTA of her chest demonstrates no evidence of any pulmonary emboli. There is no mention of any coronary calcifications. She had an electrocardiogram that was performed on 05/06/2016 at 2115 that shows sinus rhythm, no signs of ischemic changes or evidence for old infarct. EKG prior to that, at 1749 that day, shows sinus rhythm, no ischemic changes, and no evidence for any infarct on that study. Laboratory data shows a white count of 6. Hematocrit is 40.8. Platelet count is 158,000. Sodium 141, potassium 4.7, BUN 20, creatinine 1. Cardiac enzymes are negative. LDL 56, HDL 64. TSH is normal. Notably, her electrocardiograms do not seem to show any evidence consistent with pericarditis. ASSESSMENT: Atypical chest pain that seems most consistent with a musculoskeletal etiology, possibly related to coughing episodes occurring with upper respiratory infection. PLAN: Patient has a JAN risk score possibly of 1, perhaps 2. She does not seem to have any evidence of acute ischemic symptoms or abnormal laboratory evaluations regarding her heart. Her echocardiogram is currently pending. If her echo is unremarkable, I believe she can potentially go home with followup as an outpatient. I will order a sedimentation rate on the patient. She could potentially have pericarditis and it could be potentially beneficial to place the patient on anti-inflammatories.
--- NOTE | 2016-05-08 14:28 | ECHO REPORT ---
ORDER DATE: 05/08/2016 INDICATION: Chest pain, diabetes, hypertension. FINDINGS: 1. Right atrium is mildly enlarged at 4 cm. 2. There is mild tricuspid regurgitation. RV systolic pressure of 29. 3. Normal RV systolic function with mild enlargement of the right ventricle. 4. No significant pulmonic insufficiency. 5. Normal left atrial size at 3.4 cm. 6. No mitral prolapse. No significant mitral regurgitation. 7. Normal LV size, end-diastolic dimension of 4.5. No evidence of left ventricular hypertrophy. Posterior and interventricular septal wall thickness of 1.1 cm each. Normal LV systolic function. Calculated EF of 59% with normal wall motion. 8. Aortic valve opens well. No evidence of stenosis or insufficiency. 9. Aorta appears normal on visualized segments. 10. No pericardial effusion seen.
[2016-05-08] MEDS: DUONEB (A & A) INH PRN ×2 (16:14→22:33)
[2016-05-08] MEDS: LIPITOR PO SCH (22:17)
[2016-05-09] MEDS: LOVENOX SUBQ SCH (06:33)
[2016-05-09] MEDS: HUMALOG SUBQ SCH ×2 (06:34→15:27)
[2016-05-09] MEDS: ALPHAGAN 0.2% OPHTH SOLN OPH SCH (08:19)
[2016-05-09] MEDS: ZOLOFT PO SCH (08:19)
[2016-05-09] MEDS: LASIX PO SCH (08:19)
[2016-05-09] MEDS: TIMOPTIC 0.5% OPH SOLUTION BOTH EYES SCH (08:19)
[2016-05-09] MEDS: ZITHROMAX PO SCH (08:20)
[2016-05-09] MEDS: LANTUS SUBQ SCH (08:20)
[2016-05-09] MEDS: ACTOS PO SCH (08:20)
[2016-05-09] MEDS: KLOR-CON PO SCH (08:21)
[2016-05-09 09:03] VITALS: BP 120/54
[2016-05-09] MEDS: DUONEB (A & A) INH PRN (09:23)
[2016-05-09] MEDS ORDERED: ULTRAM PO PRN (10:25)
--- NOTE | 2016-05-10 05:28 | DISCHARGE SUMMARY ---
ADMISSION DATE: 05/07/2016 DISCHARGE DATE: 05/09/2016 FOLLOWUP: Patient's PCP Dr. Juan Schmitz and Dr. Villagomez. CONSULTATION DURING ADMISSION: Cardiology was consulted. Patient was seen by Dr. Troy Flores. INVASIVE STUDIES: Invasive procedures done during this admission none. IMAGING STUDIES: Imaging studies of significance, a CTA of the lungs was done which showed no evidence of pulmonary emboli. An echocardiogram was also done, which showed ejection fraction of 59% with normal wall motion. Valves were unremarkable. ADMISSION DIAGNOSES: 1. Chest pain, musculoskeletal versus ischemic. 2. Type 2 diabetes mellitus. 3. Dyslipidemia. 4. Hypertension. DISCHARGE DIAGNOSES: 1. Atypical chest pain with normal EKGs and troponin's. Echo is unremarkable. 2. Costochondritis. 3. Diabetes mellitus with presenting A1c of 7.2. 4. Bronchitis. DISCHARGE MEDICATIONS: 1. Glipizide 10 mg b.i.d. 2. Furosemide 40 mg daily. 3. Sertraline 100 mg daily. 4. Pioglitazone 45 mg daily. 5. 40 mg daily. 6. Azithromycin 250 daily. 7. Guaifenesin 1 tbsp q.4. 8. Tramadol 50 mg p.o. q.6h. PRESENTING COMPLAINT: Chest pain. HISTORY OF PRESENTING COMPLAINT: Ms. Roldan is a 75-year-old female who presented with intermittent chest pain with cough and nonproductive sputum. The patient was subsequently admitted for cardiac risk stratification. HOSPITAL COURSE: The patient was seen by Cardiology. Serial troponin's were unremarkable. EKGs were unremarkable and echocardiogram was also unremarkable. From Dr. Flores's note, he thought the patient had a very low JAN score and that the pain was more related with musculoskeletal. The patient's pain got improved with pain medications and also by controlling her cough. Today, she refers to be doing a whole lot better. Vitals have been stable. Blood pressure is 120/54, pulse 70, respirations 20, temperature is 97.6 degrees. The patient's physical exam is unremarkable except for costochondral joint tenderness. We will discharge her home and she will follow up with her primary care doctor and also follow up with the production corrugator. At the time of discharge, the patient was in a very stable condition and there was not any pending labs. TIME SPENT: The time spent for discharge was 33 minutes. [facility]
== END 2016-05-09 13:48 | disposition home or self-care (01) | DRG 206 ==
LOC: ED 17:42 → 3N 05-07 03:57
PROVIDERS: ATTEND Internal Medicine
DX: M94.0 Chondrocostal junction syndrome [Tietze] (principal); E11.9 Type 2 diabetes mellitus without complications; E66.01 Morbid (severe) obesity due to excess calories; J40 Bronchitis, not specified as acute or chronic; I10 Essential (primary) hypertension; E78.5 Hyperlipidemia, unspecified; Z86.718 Personal history of other venous thrombosis and embolism; Z79.84 Long term (current) use of oral hypoglycemic drugs; Z79.899 Other long term (current) drug therapy; Z82.49 Family history of ischemic heart disease and other diseases of the circulatory system; Z83.3 Family history of diabetes mellitus; Z80.8 Family history of malignant neoplasm of other organs or systems; Z68.32 Body mass index [BMI] 32.0-32.9, adult
CPT/HCPCS: 71010; 71275; 80048; 80053; 80061; 82550; 82948; 83036; 83735; 83880; 84443; 84484; 85025; 85379; 85610; 85651; 85730; 93005; 93306; 94640; 94761; 96372; 96374; 96375; C9113; J1650; J1815; J2270; Q9967; S0164